=== PATIENT | male | born 1945 | race Caucasian/White ===

== ENCOUNTER 2016-10-24 09:24 | Inpatient (IN) ==
[2016-10-24] MEDS ORDERED: NS 1,000 ML IV ONE (10:32)
--- NOTE | 2016-10-24 10:38 | Diag Imaging Result Doc PS360 ---
EXAM: XRAY PELVIS W/HIP 2-3VW RT HISTORY: R HIP PAIN-FALL TECHNIQUE: AP pelvis and right hip COMMENT: There is a fracture of the right femoral neck. The joint spaces are well-maintained. No other acute bony abnormalities are present. IMPRESSION: Right femoral neck fracture. Electronically signed by Anthony Roth 10/24/2016 10:36 AM
--- NOTE | 2016-10-24 10:39 | Diag Imaging Result Doc PS360 ---
EXAM: CHEST-1 VIEW HISTORY: pre-op TECHNIQUE: AP supine chest COMMENT: There are no previous studies. There is no evidence of acute cardiac or pulmonary disease. There are calcified nodes in the right hilum and aorticopulmonary window. IMPRESSION: Granulomatous changes. No evidence of acute disease. Electronically signed by Anthony Roth 10/24/2016 10:37 AM
[2016-10-24 10:56] LABS: MANUAL DIFF NEEDED? NO
[2016-10-24 11:12] LABS: INR 0.99; PROTIME 10.4 Seconds (9.2-11.7)
[2016-10-24 11:13] LABS: BASO% 0.3 % (0.0-0.8); EOS# 0.13 X1000 (0.0-0.7); EOS% 1.7 % (0.0-10.0); HEMATOCRIT 38.3 % (42.0-52.0); HEMOGLOBIN 12.9 g/dL (14.0-18.0); LYMPH# 1.01 X1000 (1.2-3.4); LYMPH% 12.9 % (20.5-51.1); MCH 31.1 PG (27-31); MCHC 33.7 g/dL (33-37); MCV 92.3 FL (81-99); MONO# 0.54 X1000 (0.11-0.59); MONO% 6.9 % (1.7-9.3); MPV 8.7 FL (7.4-10.4); NEUT% 78.2 % (42.2-75.2); PLT 179 X1000 (130-400); RBC 4.15 XMIL (4.7-6.1)
[2016-10-24 11:19] LABS: AGAP 10; ALBUMIN 4.4 g/dL (3.5-5.0); ALKALINE PHOSPHATASE 95 U/L (32-122); BUN 21 mg/dL (8-22); CALCIUM 8.8 mg/dL (8.8-10.2); CHLORIDE 101 mmol/L (98-107); COSMO 283; GOT 22 U/L (10-34); GPT 26 U/L (10-44); POTASSIUM 4.5 mmol/L (3.5-5.1); SODIUM 140 mmol/L (136-145); TCO2 29 mmol/L (25-35); TOTAL BILIRUBIN 0.25 mg/dL (0.20-1.00); TOTAL PROTEIN 7.5 g/dL (6.3-8.3)
[2016-10-24 11:40] LABS: URINE CULTURE NEEDED? NO; URINE MICRO REVIEW NEEDED? NO; URINE SOURCE CLEAN CATCH
[2016-10-24] MEDS ORDERED: DILAUDID IV ONE (11:46)
[2016-10-24] MEDS ORDERED: ZOFRAN IV ONE (11:46)
[2016-10-24 11:50] LABS: BILIRUBIN URINE NEGATIVE (NEGATIVE); BLOOD URINE MODERATE (NEGATIVE); COLOR YELLOW; GLUCOSE URINE NEGATIVE (NEGATIVE); LEUKOCYTES URINE NEGATIVE (NEGATIVE); NITRITE URINE NEGATIVE (NEGATIVE); PH URINE 5.5; PROTEIN URINE NEGATIVE (NEGATIVE); SP GRAVITY URINE 1.006; TURBIDITY URINE CLEAR (CLEAR); UROBILINOGEN URINE NORMAL (NORMAL)
[2016-10-24 11:52] LABS: UR EPITHELIAL CELLS <10 /HPF (<10); URINE BACTERIA NEGATIVE /HPF; URINE RBC <10 /HPF (<10); URINE WBC <10 /HPF (<10)
[2016-10-24] MEDS ORDERED: MORPHINE IV PRN (12:35)
[2016-10-24] MEDS: DILAUDID IV PRN ×2 (16:42→21:08)
[2016-10-24] MEDS ORDERED: TYLENOL PO PRN (21:00)
[2016-10-24] MEDS: CRESTOR PO SCH (21:08)
[2016-10-24] MEDS: DILANTIN PO SCH ×3 (21:09→21:14)
[2016-10-24] MEDS: ZOFRAN IV PRN (23:31)
[2016-10-25] MEDS: DILAUDID IV PRN ×4 (00:52→11:43)
[2016-10-25 06:16] LABS: HEMOGLOBIN 12.3 g/dL (14.0-18.0); MCHC 33.2 g/dL (33-37); MCV 96.4 FL (81-99); MPV 8.7 FL (7.4-10.4); RBC 3.84 XMIL (4.7-6.1)
[2016-10-25 06:30] LABS: AGAP 11; BUN 17 mg/dL (8-22); CALCIUM 8.5 mg/dL (8.8-10.2); CHLORIDE 97 mmol/L (98-107); COSMO 276; POTASSIUM 4.7 mmol/L (3.5-5.1); SODIUM 137 mmol/L (136-145); TCO2 29 mmol/L (25-35)
[2016-10-25] MEDS: ZOFRAN IV PRN ×2 (08:07→13:26)
[2016-10-25] MEDS: PRILOSEC PO SCH (09:40)
[2016-10-25] MEDS: PRINIVIL PO SCH (09:40)
[2016-10-25] MEDS: DILANTIN PO SCH ×2 (09:40→22:55)
[2016-10-25] MEDS ORDERED: DURAMORPH ONE (16:38)
[2016-10-25] MEDS ORDERED: VANCOMYCIN ONE (16:38)
[2016-10-25] MEDS ORDERED: MARCAINE 0.25% PF ONE (16:38)
[2016-10-25] MEDS ORDERED: TORADOL ONE (16:38)
[2016-10-25] MEDS ORDERED: SODIUM CHLORIDE 0.9% ONE (16:38)
[2016-10-25] MEDS ORDERED: NEOSPORIN G.U. IRRIGANT ONE (16:39)
[2016-10-25] MEDS ORDERED: EXPAREL 1.3% ONE (16:39)
[2016-10-25] MEDS ORDERED: CYKLOKAPRON 1,000 MG/NS 1,000 MG/100 ML IVPB ONE (16:40)
[2016-10-25] MEDS ORDERED: KEFZOL 2 GM/D5W 2 GM/50 ML IVPB ONE (16:41)
[2016-10-25] MEDS ORDERED: DIPRIVAN 1% ONE (16:45)
[2016-10-25] MEDS ORDERED: XYLOCAINE-MPF 2% ONE (16:47)
[2016-10-25] MEDS ORDERED: QUELICIN (DOSE) ONE (16:47)
[2016-10-25] MEDS ORDERED: HURRICAINE SPRAY (DOSE) ONE (16:48)
[2016-10-25] MEDS ORDERED: PEPCID ONE (16:52)
[2016-10-25] MEDS ORDERED: ZOFRAN ONE ×3 (17:00→20:24)
[2016-10-25] MEDS ORDERED: OFIRMEV 1000 MG/ISOTONIC SOLN 1,000 MG/100 ML BOTTLE ONE (17:58)
[2016-10-25] MEDS ORDERED: MORPHINE ONE (18:05)
[2016-10-25] MEDS ORDERED: MORPHINE IV PRN (22:06)
[2016-10-25] MEDS ORDERED: MILK OF MAGNESIA PO PRN (22:07)
[2016-10-25] MEDS ORDERED: SODIUM CHLORIDE 0.9% INJ ONE (22:08)
[2016-10-25] MEDS ORDERED: PHENERGAN IV ONE (22:08)
[2016-10-25] MEDS ORDERED: AMBIEN PO PRN (22:08)
[2016-10-25] MEDS: NS 1,000 ML IV SCH (22:35)
[2016-10-25] MEDS: CRESTOR PO SCH (22:55)
[2016-10-25] MEDS: CELEBREX PO SCH (22:56)
[2016-10-25] MEDS: COLACE PO SCH (22:56)
[2016-10-25] MEDS: LYRICA PO SCH (22:56)
[2016-10-25] MEDS: TYLENOL PO SCH (22:57)
[2016-10-25] MEDS: ULTRAM PO SCH (22:57)
[2016-10-26] MEDS: KEFZOL 2 GM/D5W 2 GM/50 ML IVPB IV SCH ×2 (02:49→09:13)
[2016-10-26] MEDS: ZOFRAN IV PRN (02:49)
[2016-10-26 05:15] LABS: HEMOGLOBIN 10.8 g/dL (14.0-18.0); MCH 32.3 PG (27-31); MCHC 33.8 g/dL (33-37); MCV 95.8 FL (81-99); MPV 8.5 FL (7.4-10.4); RBC 3.34 XMIL (4.7-6.1)
[2016-10-26] MEDS: XARELTO PO SCH (05:20)
[2016-10-26] MEDS: ULTRAM PO SCH ×3 (05:20→22:17)
[2016-10-26] MEDS: TYLENOL PO SCH ×3 (05:21→22:17)
[2016-10-26] MEDS: PRILOSEC PO SCH ×2 (05:21→07:54)
[2016-10-26 05:42] LABS: AGAP 12; BUN 19 mg/dL (8-22); CALCIUM 7.9 mg/dL (8.8-10.2); CHLORIDE 101 mmol/L (98-107); COSMO 283; POTASSIUM 4.2 mmol/L (3.5-5.1); SODIUM 140 mmol/L (136-145); TCO2 27 mmol/L (25-35)
[2016-10-26] MEDS ORDERED: DECADRON IV SCH (09:00)
[2016-10-26] MEDS: PEPCID PO SCH (09:17)
[2016-10-26] MEDS: PERIDEX MT SCH ×2 (09:17→22:18)
[2016-10-26] MEDS: LYRICA PO SCH ×2 (09:21→22:18)
[2016-10-26] MEDS: DILANTIN PO SCH ×2 (09:21→22:18)
[2016-10-26] MEDS: CELEBREX PO SCH ×2 (09:22→22:17)
[2016-10-26] MEDS: COLACE PO SCH ×2 (09:22→22:19)
[2016-10-26] MEDS: PRINIVIL PO SCH (09:23)
[2016-10-26] MEDS: OXY IR PO PRN (13:39)
[2016-10-26] MEDS: CRESTOR PO SCH (22:19)
[2016-10-27] MEDS: DILAUDID IV PRN ×5 (00:10→23:08)
[2016-10-27] MEDS: TYLENOL PO SCH ×4 (03:25→23:04)
[2016-10-27] MEDS: ULTRAM PO SCH ×4 (03:25→20:35)
[2016-10-27 05:39] LABS: HEMOGLOBIN 9.9 g/dL (14.0-18.0); MCH 31.6 PG (27-31); MCV 95.8 FL (81-99); MPV 8.8 FL (7.4-10.4); RBC 3.13 XMIL (4.7-6.1)
[2016-10-27 06:00] LABS: AGAP 13; BUN 14 mg/dL (8-22); CALCIUM 7.8 mg/dL (8.8-10.2); CHLORIDE 99 mmol/L (98-107); COSMO 281; POTASSIUM 3.5 mmol/L (3.5-5.1); SODIUM 140 mmol/L (136-145); TCO2 28 mmol/L (25-35)
[2016-10-27] MEDS: NS 1,000 ML IV SCH ×2 (06:29→17:09)
[2016-10-27] MEDS: XARELTO PO SCH (06:49)
[2016-10-27] MEDS: PRILOSEC PO SCH (06:50)
[2016-10-27] MEDS: ZOFRAN IV PRN (07:42)
[2016-10-27] MEDS: PEPCID PO SCH (08:23)
[2016-10-27] MEDS: PRINIVIL PO SCH (08:23)
[2016-10-27] MEDS: DILANTIN PO SCH ×2 (08:25→20:35)
[2016-10-27] MEDS: PERIDEX MT SCH ×2 (12:27→20:35)
[2016-10-27] MEDS: CELEBREX PO SCH ×2 (12:27→20:35)
[2016-10-27] MEDS: LYRICA PO SCH ×2 (12:28→20:36)
[2016-10-27] MEDS: COLACE PO SCH ×2 (12:28→20:37)
[2016-10-27] MEDS: OXY IR PO PRN ×2 (20:02→20:08)
[2016-10-27] MEDS: CRESTOR PO SCH (20:36)
[2016-10-28] MEDS: DILAUDID IV PRN ×2 (03:17→08:53)
[2016-10-28] MEDS: NS 1,000 ML IV SCH (05:51)
[2016-10-28] MEDS: TYLENOL PO SCH ×2 (05:51→13:02)
[2016-10-28] MEDS: PRILOSEC PO SCH ×2 (05:55→09:04)
[2016-10-28] MEDS: XARELTO PO SCH (05:55)
[2016-10-28] MEDS: ULTRAM PO SCH ×3 (05:58→13:02)
[2016-10-28 06:05] LABS: HEMATOCRIT 27.3 % (42.0-52.0); HEMOGLOBIN 9.1 g/dL (14.0-18.0)
[2016-10-28] MEDS: PRINIVIL PO SCH (08:57)
[2016-10-28] MEDS: PERIDEX MT SCH (08:57)
[2016-10-28] MEDS: LYRICA PO SCH (08:58)
[2016-10-28] MEDS: CELEBREX PO SCH (09:02)
[2016-10-28] MEDS: PEPCID PO SCH (09:02)
[2016-10-28] MEDS: COLACE PO SCH (09:02)
[2016-10-28] MEDS: DILANTIN PO SCH (09:03)
[2016-10-28] MEDS: OXY IR PO PRN ×2 (09:03→14:43)
[2016-10-28 11:38] VITALS: BP 128/64
== END 2016-10-28 15:18 ==
LOC: ED 09:24 → 4N 11:29
PROVIDERS: ATTEND Internal Medicine

== ENCOUNTER 2016-11-30 12:01 | Inpatient (IN) ==
--- NOTE | 2016-11-30 13:37 | Diag Imaging Result Doc PS360 ---
CT HEAD W/O CONTRAST - 11/30/2016 INDICATION: AMS, weakness TECHNIQUE: A CT dose reduction protocol was used. COMPARISON: None FINDINGS: The ventricles and sulci are normal in size and contour. No intracranial mass or hemorrhage. The skull is intact. The sinuses mastoids and middle ears are clear. IMPRESSION: Negative exam. Electronically signed by Daniel Couch 11/30/2016 1:35 PM
--- NOTE | 2016-11-30 14:02 | Diag Imaging Result Doc PS360 ---
EXAM: CHEST-PORTABLE INDICATION: weakness TECHNIQUE: One view COMPARISON: 10/24/2016 FINDINGS: The lungs are grossly clear. There is no discrete pleural fluid collection or pneumothorax. The cardiomediastinal silhouette and central vasculature are grossly unremarkable. IMPRESSION: No evidence of acute pathology by plain radiograph. Electronically signed by Abhinav Sorto 11/30/2016 2:00 PM
--- NOTE | 2016-11-30 14:04 | EKG Report ---
Test Performed on : 11/30/2016 1:42:31 PM Test Reason : weakness Blood Pressure : / mmHG Vent. Rate : 065 BPM Atrial Rate : 065 BPM P-R Int : 224 ms QRS Dur : 094 ms QT Int : 424 ms P-R-T Axes : 051 053 074 degrees QTc Int : 440 ms Sinus rhythm. with 1st degree AV block. Otherwise normal ECG When compared with ECG of 24-OCT-2016 11:31, [place] interval has increased Unconfirmed Result
[2016-11-30 14:06] LABS: ALLEN TEST YES; BE 1.9 mmoll (-3.0-3.0); BLOOD TYPE ARTERIAL; DRAW SITE R RADIAL; METHB 1.4 % (0.0-1.5); PCO2(98.6) 41 mmHg (35-45); PO2(98.6) 76 mmHg (60-100); SAMPLE BLOOD; SAO2 96.1 % (95.0-100.0); THB 12.1 g/dL (11.5-17.4); pH(98.6) 7.42 (7.35-7.45)
[2016-11-30 14:06] LABS: MANUAL DIFF NEEDED? NO
[2016-11-30 14:08] LABS: MODALITY ROOM AIR
[2016-11-30 14:19] LABS: BASO% 0.3 % (0.0-0.8); EOS# 0.12 X1000 (0.0-0.7); EOS% 1.9 % (0.0-10.0); HEMATOCRIT 36.6 % (42.0-52.0); HEMOGLOBIN 12.3 g/dL (14.0-18.0); LYMPH# 1.55 X1000 (1.2-3.4); LYMPH% 24.4 % (20.5-51.1); MCH 31.5 PG (27-31); MCHC 33.6 g/dL (33-37); MCV 93.8 FL (81-99); MONO# 0.56 X1000 (0.11-0.59); MONO% 8.8 % (1.7-9.3); MPV 8.9 FL (7.4-10.4); NEUT% 64.6 % (42.2-75.2); PLT 213 X1000 (130-400)
[2016-11-30 14:20] LABS: INR 1.08; PROTIME 11.4 Seconds (9.2-11.7); PTT 25.3 Seconds (22.0-36.0)
[2016-11-30] MEDS ORDERED: NS 1,000 ML IV ONE (14:20)
[2016-11-30] MEDS ORDERED: MORPHINE IV ONE ×3 (14:21→20:00)
[2016-11-30] MEDS ORDERED: ZOFRAN IV ONE ×3 (14:22→20:00)
[2016-11-30 14:25] LABS: AGAP 11; ALKALINE PHOSPHATASE 130 U/L (32-122); BUN 15 mg/dL (8-22); CALCIUM 8.8 mg/dL (8.8-10.2); CHLORIDE 98 mmol/L (98-107); CK PROFILE 44 U/L (24-204); COSMO 275; GOT 23 U/L (10-34); GPT 27 U/L (10-44); POTASSIUM 3.7 mmol/L (3.5-5.1); SODIUM 137 mmol/L (136-145); TCO2 28 mmol/L (25-35); TOTAL BILIRUBIN 0.28 mg/dL (0.20-1.00); TOTAL PROTEIN 7.6 g/dL (6.3-8.3)
[2016-11-30 15:47] LABS: URINE CULTURE NEEDED? NO; URINE MICRO REVIEW NEEDED? NO; URINE SOURCE CLEAN CATCH
[2016-11-30 15:52] LABS: BILIRUBIN URINE NEGATIVE (NEGATIVE); BLOOD URINE NEGATIVE (NEGATIVE); COLOR YELLOW; GLUCOSE URINE NEGATIVE (NEGATIVE); LEUKOCYTES URINE NEGATIVE (NEGATIVE); NITRITE URINE NEGATIVE (NEGATIVE); PH URINE 5.5; PROTEIN URINE TRACE mg/dL (NEGATIVE); TURBIDITY URINE CLEAR (CLEAR); UR EPITHELIAL CELLS <10 /HPF (<10); URINE BACTERIA NEGATIVE /HPF; URINE RBC <10 /HPF (<10); URINE WBC <10 /HPF (<10); UROBILINOGEN URINE NORMAL (NORMAL)
[2016-11-30 16:05] LABS: UR AMPHETAMINES QUAL NONE DETECTED (NONE DETECT); UR BARBITUATES QUAL NONE DETECTED (NONE DETECT); UR BENZODIAZEPIN QUAL NONE DETECTED (NONE DETECT); UR CANNABINOIDS QUAL NONE DETECTED (NONE DETECT); UR COCAINE QUAL NONE DETECTED (NONE DETECT); UR METHADONE QUAL NONE DETECTED (NONE DETECT); UR OPIATES QUAL PRESUMPTIVE POSITIVE (NONE DETECT); UR OXYCODONE QUAL NONE DETECTED (NONE DETECT); UR PCP QUAL NONE DETECTED (NONE DETECT)
[2016-11-30] MEDS ORDERED: LOVENOX SUBQ SCH (19:00)
[2016-11-30] MEDS ORDERED: MORPHINE ONE (20:01)
[2016-11-30] MEDS ORDERED: DILANTIN PO SCH (21:09)
[2016-11-30] MEDS ORDERED: CRESTOR PO SCH (21:09)
[2016-11-30] MEDS: ZOFRAN IV PRN (21:18)
[2016-11-30] MEDS: LYRICA PO SCH (21:29)
[2016-11-30] MEDS: MORPHINE IV PRN (21:33)
[2016-12-01] MEDS: DILANTIN PO SCH ×2 (00:01→08:41)
[2016-12-01] MEDS: ZOFRAN IV PRN ×3 (02:44→14:37)
[2016-12-01] MEDS ORDERED: MOTRIN PO ONE (04:45)
[2016-12-01] MEDS: MORPHINE IV PRN ×2 (06:44→11:02)
[2016-12-01 07:00] LABS: MANUAL DIFF NEEDED? NO
[2016-12-01] MEDS ORDERED: DILANTIN PO SCH (07:00)
[2016-12-01] MEDS ORDERED: PRILOSEC PO SCH (07:00)
[2016-12-01 07:03] LABS: BASO% 0.4 % (0.0-0.8); EOS# 0.23 X1000 (0.0-0.7); EOS% 4.6 % (0.0-10.0); HEMATOCRIT 33.9 % (42.0-52.0); HEMOGLOBIN 11.5 g/dL (14.0-18.0); LYMPH# 1.71 X1000 (1.2-3.4); LYMPH% 34.3 % (20.5-51.1); MCH 31.3 PG (27-31); MCHC 33.9 g/dL (33-37); MCV 92.1 FL (81-99); MONO# 0.51 X1000 (0.11-0.59); MONO% 10.2 % (1.7-9.3); MPV 8.7 FL (7.4-10.4); NEUT% 50.5 % (42.2-75.2); PLT 187 X1000 (130-400); RBC 3.68 XMIL (4.7-6.1)
[2016-12-01 07:34] LABS: AGAP 8; BUN 16 mg/dL (8-22); CALCIUM 8.7 mg/dL (8.8-10.2); CHLORIDE 102 mmol/L (98-107); COSMO 277; POTASSIUM 4.7 mmol/L (3.5-5.1); SODIUM 138 mmol/L (136-145); TCO2 28 mmol/L (25-35)
[2016-12-01 07:53] VITALS: BP 143/81
[2016-12-01] MEDS: LYRICA PO SCH (08:41)
[2016-12-01] MEDS ORDERED: ASPIRIN EC PO SCH (09:00)
== END 2016-12-01 15:28 | disposition home health service (06) ==
LOC: ED 12:01 → 3N 20:30
PROVIDERS: ATTEND Internal Medicine